=== PATIENT | female | born 1950 | race Caucasian/White ===

== ENCOUNTER 2017-12-14 08:13 | Emergency (ER) | payer OTHER ==
[~2017-12-14] VITALS: Ht 142.2 cm; Wt 79.8 kg
[2017-12-14 08:20] VITALS: Ht 142.2 cm; Wt 79.8 kg
[2017-12-14 09:40] VITALS: BP 117/72
== END 2017-12-14 10:19 | disposition home or self-care (01) ==
LOC: ED 08:13
DX: K59.00 Constipation, unspecified (principal); I10 Essential (primary) hypertension; E11.9 Type 2 diabetes mellitus without complications